=== PATIENT | female | born 1975 | race Caucasian/White ===

== ENCOUNTER 2023-09-01 04:29 | Day surgery (SDC) | payer OTHER ==
[2023-08-29 15:52] VITALS: BMI 27.4
[2023-09-01] MEDS ORDERED: MIDAZOLAM HCL 2 MG/2 ML SINGLE DOSE VIAL ONE (09:00)
[2023-09-01] MEDS ORDERED: FENTANYL CITRATE/PF 50 MCG/ML VIAL ONE ×2 (09:00→10:27)
[2023-09-01] MEDS ORDERED: PROPOFOL 20 ML ONE (09:01)
[2023-09-01] MEDS ORDERED: LIDOCAINE HCL/PF 2% SDV 5ML VIAL ONE (09:02)
[2023-09-01] MEDS ORDERED: DEXAMETHASONE SOD PHOSPHATE 4 MG/1 ML VIAL ONE (09:47)
[2023-09-01] MEDS ORDERED: KETOROLAC TROMETHAMINE 30 MG/1 ML VIAL ONE (09:47)
[2023-09-01] MEDS ORDERED: ONDANSETRON 4 MG/2 ML VIAL ONE (09:47)
[2023-09-01] MEDS ORDERED: ONDANSETRON 4 MG/2 ML VIAL IVPUSH PRN (09:58)
[2023-09-01] MEDS ORDERED: ACETAMINOPHEN 1000 MG/100 ML BAG IVPB ONE (09:59)
[2023-09-01] MEDS ORDERED: LACTATED RINGERS SOLUTION 1,000 ML IV SCH (10:00)
[2023-09-01] MEDS ORDERED: ACETAMINOPHEN INJECTION 100 ML IVPB ONE (10:27)
[2023-09-01 11:24] VITALS: RESP 18
[2023-09-01 12:24] VITALS: BP 134/83; PULSE 64; TEMP 98.2
== END 2023-09-01 12:03 | disposition home or self-care (01) ==
LOC: JASU-SURG 04:29
PROVIDERS: ATTEND Obstetrics & Gynecology Obstetrics
PROC: 0UH98HZ Insertion of Contraceptive Device into Uterus, Via Natural or Artificial Opening Endoscopic (ICD-10-PCS; principal; 2023-09-01 09:00)
PROC: 0UDB8ZZ Extraction of Endometrium, Via Natural or Artificial Opening Endoscopic (ICD-10-PCS; 2023-09-01 09:00)
DX: Z30.433 Encounter for removal and reinsertion of intrauterine contraceptive device (principal); D25.9 Leiomyoma of uterus, unspecified
CPT/HCPCS: 81025; 88305-TC; 94760; J0131

== ENCOUNTER 2023-12-22 04:08 | Day surgery (SDC) | payer OTHER ==
[2023-12-18 15:51] VITALS: BMI 28.1
[2023-12-22] MEDS ORDERED: PROPOFOL 20 ML ONE (07:51)
[2023-12-22] MEDS ORDERED: ROCURONIUM BROMIDE 50 MG/5 ML SYRINGE ONE (07:51)
[2023-12-22] MEDS ORDERED: MIDAZOLAM HCL 2 MG/2 ML SINGLE DOSE VIAL ONE (07:51)
[2023-12-22] MEDS: ceFAZolin SODIUM 1 GM VIAL IVPB ONE (08:29)
[2023-12-22] MEDS ORDERED: DEXAMETHASONE SOD PHOSPHATE 4 MG/1 ML VIAL ONE (08:37)
[2023-12-22] MEDS ORDERED: ceFAZolin SODIUM 1 GM VIAL ONE (08:37)
[2023-12-22] MEDS ORDERED: ONDANSETRON 4 MG/2 ML VIAL ONE (08:37)
[2023-12-22] MEDS ORDERED: SUGAMMADEX SODIUM 200 MG/2 ML VIAL ONE (09:00)
[2023-12-22] MEDS ORDERED: oxyCODONE HCL 5 MG TABLET PO PRN (09:04)
[2023-12-22] MEDS ORDERED: ONDANSETRON 4 MG/2 ML VIAL IVPUSH PRN (09:04)
[2023-12-22] MEDS: LACTATED RINGERS SOLUTION 1,000 ML IV SCH (09:33)
[2023-12-22 11:13] VITALS: RESP 20
[2023-12-22 11:40] VITALS: BP 110/71; PULSE 76; TEMP 98.2
== END 2023-12-22 11:48 | disposition home or self-care (01) ==
LOC: JASU-SURG 04:08
PROVIDERS: ATTEND Obstetrics & Gynecology Obstetrics
PROC: 0UB97ZZ Excision of Uterus, Via Natural or Artificial Opening (ICD-10-PCS; principal; 2023-12-22 08:00)
DX: D25.9 Leiomyoma of uterus, unspecified (principal); N84.1 Polyp of cervix uteri; N88.8 Other specified noninflammatory disorders of cervix uteri
CPT/HCPCS: 81025; 88305-TC; 88341-TC; 88342-TC; 94760